=== PATIENT | male | born 1960 | race Caucasian/White ===

== ENCOUNTER 2016-11-22 08:30 | Day surgery (SDC) | payer BC ==
[2016-11-20 12:30] VITALS: BMI 25.4
[2016-11-22] MEDS ORDERED: PROPOFOL 20 ML ONE ×2 (08:44)
[2016-11-22] MEDS ORDERED: LIDOCAINE HCL/PF 2% SDV 5ML VIAL ONE (08:45)
[2016-11-22 09:53] VITALS: BP 101/74; PULSE 80; TEMP 98
== END 2016-11-22 10:34 | disposition home or self-care (01) ==
LOC: FASU-ENDO 08:30
PROVIDERS: ATTEND Internal Medicine Gastroenterology
PROC: 0DJD8ZZ Inspection of Lower Intestinal Tract, Via Natural or Artificial Opening Endoscopic (ICD-10-PCS; principal; 2016-11-22 09:10)
DX: Z12.11 Encounter for screening for malignant neoplasm of colon (principal); K57.30 Diverticulosis of large intestine without perforation or abscess without bleeding; Z98.0 Intestinal bypass and anastomosis status

== ENCOUNTER 2020-03-22 09:04 | Day surgery (SDC) | payer BC ==
[2020-03-19 10:03] VITALS: BMI 27.8
[2020-03-22 14:58] VITALS: TEMP 97.9
[2020-03-22 15:05] VITALS: BP 114/66; PULSE 78
== END 2020-03-22 12:40 | disposition home or self-care (01) ==
LOC: FASU-ENDO 09:04
PROVIDERS: ATTEND Internal Medicine Gastroenterology
PROC: 0DJD8ZZ Inspection of Lower Intestinal Tract, Via Natural or Artificial Opening Endoscopic (ICD-10-PCS; principal; 2020-03-22 10:47)
DX: Z85.038 Personal history of other malignant neoplasm of large intestine (principal); Z98.0 Intestinal bypass and anastomosis status; K57.30 Diverticulosis of large intestine without perforation or abscess without bleeding

== ENCOUNTER 2022-04-03 13:32 | Emergency (ER) | payer BC ==
[2022-04-03] MEDS ORDERED: DIPHTH,PERTUSS(ACELL),TET 0.5 ML DISP.SYRIN IM ONE ×2 (13:47→14:06)
[2022-04-03 14:01] VITALS: BP 122/74; PULSE 79; RESP 18; TEMP 98.4; BMI 26.2
== END 2022-04-03 14:13 | disposition home or self-care (01) ==
LOC: FER 13:32
PROC: 3E0234Z Introduction of Serum, Toxoid and Vaccine into Muscle, Percutaneous Approach (ICD-10-PCS; principal; 2022-04-03)
DX: S00.01XA Abrasion of scalp, initial encounter (principal); S09.90XA Unspecified injury of head, initial encounter; W22.8XXA Striking against or struck by other objects, initial encounter; Y92.091 Bathroom in other non-institutional residence as the place of occurrence of the external cause
CPT/HCPCS: 90715; 99284-25

== ENCOUNTER 2023-08-15 07:26 | Day surgery (SDC) | payer BC ==
[2023-08-13 09:31] VITALS: BMI 27.5
[2023-08-15 09:43] VITALS: BP 111/82; PULSE 82; RESP 18; TEMP 98.9
== END 2023-08-15 10:05 | disposition home or self-care (01) ==
LOC: FASU-ENDO 07:26
PROVIDERS: ATTEND Internal Medicine Gastroenterology
PROC: 0DJD8ZZ Inspection of Lower Intestinal Tract, Via Natural or Artificial Opening Endoscopic (ICD-10-PCS; principal; 2023-08-15 09:02)
DX: Z12.11 Encounter for screening for malignant neoplasm of colon (principal); Z85.038 Personal history of other malignant neoplasm of large intestine; K57.30 Diverticulosis of large intestine without perforation or abscess without bleeding; Z98.0 Intestinal bypass and anastomosis status